=== PATIENT | male | born 1940 | race Caucasian/White ===

== ENCOUNTER 2022-12-05 06:21 | Day surgery (SDC) | payer MEDICARE, OTHER ==
[2022-12-03 10:43] LABS: BASOPHILS % (AUTO) 0.7 % (0-1); EOSINOPHILS # (AUTO) 0.2 X10'3 (0-0.9); EOSINOPHILS % (AUTO) 2.4 % (0-6); HEMATOCRIT 44.9 % (42.0-52.0); HEMOGLOBIN 14.9 g/dl (14.0-17.9); LYMPHOCYTES # (AUTO) 0.8 X10'3 (1.1-4.8); LYMPHOCYTES % (AUTO) 12.3 % (21-51); MEAN CORPUSCULAR HEMOGLOBIN 29.5 PG (27.0-31.0); MEAN CORPUSCULAR HGB CONC 33.1 g/dL (33.0-36.5); MEAN CORPUSCULAR VOLUME 89.1 FL (78-98); MEAN PLATELET VOLUME 8.8 FL (7.4-10.4); MONOCYTES # (AUTO) 0.5 X10'3 (0-0.9); MONOCYTES % (AUTO) 8.5 % (2-12); NEUTROPHILS # (AUTO) 4.9 X10'3 (1.8-7.7); NEUTROPHILS % (AUTO) 76.1 % (42-75); PLATELET COUNT 219 X10'3 (140-440); RED BLOOD COUNT 5.04 X10'6 (4.70-6.10); RED CELL DISTRIBUTION WIDTH 15.1 % (11.5-14.5); WHITE BLOOD COUNT 6.4 X10'3 (4.5-11.0)
[2022-12-03 10:54] LABS: APTT 27 SECONDS (22-32)
[2022-12-03 10:56] LABS: ALANINE AMINOTRANSFERASE 28 U/L (12-78); ALBUMIN/GLOBULIN RATIO 1.4 (1.1-1.5); ALKALINE PHOSPHATASE 87 IU/L (46-116); ANION GAP 8 (8-16); ASPARTATE AMINO TRANSFERASE 18 U/L (10-37); BILIRUBIN,TOTAL 0.9 MG/DL (0.1-1.0); BLOOD UREA NITROGEN 22 MG/DL (7-18); BUN/CREATININE RATIO 16.1 (10.0-20.0); CALCIUM 9.3 MG/DL (8.5-10.1); CHLORIDE 106 MMOL/L (99-107); CREATININE 1.37 MG/DL (0.60-1.10); GLUCOSE 104 MG/DL (70-104); POTASSIUM 4.6 MMOL/L (3.5-5.1); SODIUM 142 MMOL/L (135-145); TOTAL CARBON DIOXIDE 27.7 MMOL/L (24-32); TOTAL PROTEIN 6.8 G/DL (6.4-8.2); eGFR 50 ML/MIN
[2022-12-05] VITALS (11 sets, daily range): BP systolic 111–142; BP diastolic 56–72
[~2022-12-05] VITALS: Ht 167.6 cm; Wt 87.6 kg
[~2022-12-05 06:21] MED LIST: ALPR-623 PO
[2022-12-05] MEDS ORDERED: LORazepam 0.5 MG tablet PO PRN (06:45)
[2022-12-05] MEDS ORDERED: nitroGLYCERIN 0.4mg SUBLingual tab SL PRN ×2 (06:45→11:20)
[2022-12-05] MEDS ORDERED: diphenhydrAMINE 25mg capsule PO PRN (06:45)
[2022-12-05] MEDS ORDERED: normal saline 1,000 ML IV SCH (06:45)
[2022-12-05] MEDS ORDERED: NITR0.4T51 SL (07:13)
[2022-12-05] MEDS ORDERED: CIME200T95 PO (07:13)
[2022-12-05 07:15] LABS: APTT 25 SECONDS (22-32)
[2022-12-05] MEDS ORDERED: iohexol 350MG/ML 100ml bottle IV ONE ×2 (08:20→10:01)
[2022-12-05] MEDS ORDERED: midazolam 1 mg/ML 2ml injection ONE (08:20)
[2022-12-05] MEDS ORDERED: LIDOcaine 1% 30ml preserv. free vial ONE (08:20)
[2022-12-05] MEDS ORDERED: fentaNYL/PF 50MCG/1 ML 2ML syringe ONE (08:20)
[2022-12-05] MEDS ORDERED: iohexol 350 MG/ML 50ML vial IV ONE (08:43)
[2022-12-05] MEDS ORDERED: nitroGLYCERIN-Tridil 50MG/D5W 250 ML IV ONE (09:53)
[2022-12-05] MEDS ORDERED: heparin 1,000unit/ml 10ml vial 0 ML ONE (10:01)
[2022-12-05 10:33] LABS: ISTAT HGB ART 12.6 g/dl (14.0-17.9); ISTAT Hct ART 37 %PCV (42-52); ISTAT O2 SATURATION ARTERIAL 91 % (95-98); ISTAT SOURCE ART
[2022-12-05] MEDS ORDERED: normal saline 1000ml 1,000 ML IV SCH (11:20)
[2022-12-05] MEDS ORDERED: ondansetron/PF 4mg/2ml inj IV PRN (11:20)
[2022-12-05] MEDS ORDERED: HYDROcodone/acetaminophen 5mg/325mg tablet PO PRN (11:20)
[2022-12-05] MEDS ORDERED: proCHLORperazine 10 MG/2 ml inj IV PRN (11:20)
[2022-12-05] MEDS ORDERED: HYDROcodone/acetaminophen 10/325mg tab PO PRN (11:20)
[2022-12-05 13:25] LABS: ISTAT Hct MIX 37 %PCV (42-52); ISTAT O2 SATURATION MIX VENOUS 61 % (60-80); ISTAT SOURCE VEN
--- NOTE | 2022-12-05 15:15 | NUR ---
Received report from Shani PAUL. Assumed pt care. Pt sitting up at 45 degrees at time of bedside report. Dressing to right groin CD&I, no s/s hematoma. Pt c/o hiccups.
== END 2022-12-05 17:00 | disposition home or self-care (01) ==
LOC: SSTAY O 06:21
PROVIDERS: ATTEND Internal Medicine Cardiovascular Disease
DX: I25.118 Atherosclerotic heart disease of native coronary artery with other forms of angina pectoris (principal); I27.20 Pulmonary hypertension, unspecified; K21.9 Gastro-esophageal reflux disease without esophagitis; E66.9 Obesity, unspecified; Z68.31 Body mass index [BMI] 31.0-31.9, adult; E78.5 Hyperlipidemia, unspecified; Z87.891 Personal history of nicotine dependence; Z88.2 Allergy status to sulfonamides; Z91.013 Allergy to seafood; Z86.73 Personal history of transient ischemic attack (TIA), and cerebral infarction without residual deficits; Z79.899 Other long term (current) drug therapy; Z79.01 Long term (current) use of anticoagulants
CPT/HCPCS: 36415; 71046; 80053; 82803; 83880; 84484; 85014; 85025; 85610; 85730; 93460; 99152; 99153; J1644; J2250; J3010; J3490; J7030; Q0163; Q9967; A6258; C1751; C1760; C1769